=== PATIENT | female | born 2000 | race African-American/Black ===

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

== ENCOUNTER 2022-01-22 20:51 | Emergency (ER) | payer OTHER ==
[~2022-01-22] VITALS: Ht 160 cm; Wt 52.3 kg
[2022-01-22 20:54] VITALS: BP 104/69
== END 2022-01-23 | disposition home or self-care (01) ==
LOC: EMS 20:54
DX: S60.222A Contusion of left hand, initial encounter (principal); W22.01XA Walked into wall, initial encounter; Y93.89 Activity, other specified; Y92.89 Other specified places as the place of occurrence of the external cause; Y99.8 Other external cause status
CPT/HCPCS: 99284; 73110-TC; 73130-TC; Z7502

== ENCOUNTER 2022-02-02 09:28 | Emergency (ER) | payer OTHER ==
[~2022-02-02] VITALS: Ht 157.5 cm; Wt 50.0 kg
[2022-02-02 10:04] LABS: BASOPHILS % (AUTO) 0.3 % (0.0-2.0); EOSINOPHILS % (AUTO) 0 % (1.0-6.0); HEMATOCRIT 40.9 % (36-46); HEMOGLOBIN 13.2 g/dL (12.0-16.0); LYMPHOCYTES # (AUTO) 0.7 K/uL (1.0-4.8); LYMPHOCYTES % (AUTO) 6.9 % (22.0-44.0); MEAN CORPUSCULAR HEMOGLOBIN 26.3 pg (26.0-34.0); MEAN CORPUSCULAR HGB CONC 32.2 G/dL (31.0-37.0); MEAN CORPUSCULAR VOLUME 82 fL (80-100); MONOCYTES # (AUTO) 0.3 K/uL (0.1-1.0); MONOCYTES % (AUTO) 3.2 % (2.0-9.0); NEUTROPHILS # (AUTO) 8.9 K/uL (1.8-7.7); NEUTROPHILS % (AUTO) 89.6 % (40.0-70.0); PLATELET COUNT (AUTO) 335 K/uL (150-450); RED CELL DISTRIBUTION WIDTH 17.1 % (11.5-14.5)
[2022-02-02 10:18] LABS: ANION GAP 12 mmol/L (8-16); CALCIUM, TOTAL 9.6 mg/dL (8.8-10.5); CARBON DIOXIDE 25 mmol/L (22-29); CHLORIDE 102 mmol/L (98-107); CREATININE 0.58 mg/dL (0.60-1.30); GLUCOSE,RANDOM 134 mg/dL (70-110); POTASSIUM 3.8 mmol/L (3.5-5.1); SODIUM SERUM 139 mmol/L (136-145); UREA NITROGEN, BLOOD 8 mg/dL (7-18)
[2022-02-02 10:21] LABS: GLOMERULAR FILTR. RATE CALC > 60 mL/min (>60)
[2022-02-02 10:30] LABS: ALANINE AMINOTRANSFERASE 14 U/L (12-78); ALBUMIN 4.5 g/dL (3.4-5.0); ALKALINE PHOSPHATASE 72 U/L (46-116); ASPARTATE AMINOTRANSFERASE 14 U/L (15-37); BILIRUBIN,TOTAL 0.5 mg/dL (0.1-1.0); HCG,QUANTITATIVE < 1 mIU/mL (0-6); LIPASE 87 U/L (73-393); PHOSPHORUS 3.8 mg/dL (2.5-4.9); TOTAL PROTEIN, SERUM 8.9 g/dL (6.4-8.2)
[2022-02-02] MEDS ORDERED: SODIUM CHLORIDE 0.9% 100 ML ONE (10:39)
[2022-02-02] MEDS ORDERED: IOHEXOL 350 MG/ML 100 ML VIAL ONE ×2 (10:39→12:37)
[2022-02-02] MEDS ORDERED: FAMOTIDINE 10 MG/ML 2 ML VIAL IVP ONE (10:45)
[2022-02-02] MEDS ORDERED: KETOROLAC TROMETHAMINE 30 MG/ML VIAL IVP ONE (10:45)
[2022-02-02] MEDS ORDERED: MAG HYDROX/AL HYDROX/SIMETH 30 ML SUSP UDCUP PO ONE (10:45)
[2022-02-02] MEDS ORDERED: ONDANSETRON HCL 4 MG/2 ML VIAL IVP ONE (10:45)
[2022-02-02] MEDS ORDERED: SODIUM CHLORIDE 0.9% 1,000 ML IV ONE (10:45)
[2022-02-02] MEDS ORDERED: METOCLOPRAMIDE HCL 5 MG/ML 2 ML VIAL IVP ONE (12:30)
[2022-02-02] MEDS ORDERED: DiphenhydrAMINE HCL 50 MG/ML VIAL IVP ONE (12:30)
[2022-02-02 12:40] LABS: COVID AG,FIA SOURCE NASOPHARYNGEAL
[2022-02-02 12:49] LABS: APPEARANCE,URINE CLEAR (CLEAR); BILIRUBIN,URINE NEGATIVE (NEGATIVE); GLUCOSE, URINE (UA) NEGATIVE (NEGATIVE); KETONES,URINE 40-60 mg/dL (NEGATIVE); LEUKOCYTE ESTERASE ,URINE NEGATIVE (NEGATIVE); NITRATE,URINE NEGATIVE (NEGATIVE); OCCULT BLOOD,URINE MODERATE (NEGATIVE); PH,URINE 8.5 (5.0-8.0); PROTEIN,URINE 100-200,SEE CONFIRM mg/dL (NEGATIVE); UROBILINOGEN,URINE <=1.0 mg/dL (<=1.0)
[2022-02-02 13:03] LABS: SPECIFIC GRAVITIY, URINE > 1.050 (1.003-1.030)
[2022-02-02 13:08] LABS: INFLUENZA TYPE A NEGATIVE FOR TYPE A (NEGATIVE); INFLUENZA TYPE B NEGATIVE FOR TYPE B (NEGATIVE)
[2022-02-02 13:13] LABS: SULFOSALICYLIC ACID,URINE Negative (Negative)
[2022-02-02 13:16] LABS: BACTERIA,URINE None Seen /HPF (None Seen); RBC,URINE 0-2 /HPF (0-2); WBC,URINE None Seen /HPF (0-5)
[2022-02-02 13:40] VITALS: BP 119/64
[2022-02-02] MEDS ORDERED: ONDA-104 PO (13:48)
== END 2022-02-02 14:10 | disposition home or self-care (01) ==
LOC: EMS 09:40
DX: K52.9 Noninfective gastroenteritis and colitis, unspecified (principal); Z20.822 Contact with and (suspected) exposure to COVID-19
CPT/HCPCS: 99285; 74177; 96374; 96375; 76700; 96361; 87426; 80053; 81001; 81002; 82962; 83690; 83735; 84100; 84702; 85025; 87804; 36415; J1200; J3490; J1885; J2765; J2405; Q9967; J7030; J7050

== ENCOUNTER 2022-12-21 19:16 | Emergency (ER) | payer MEDICAID, OTHER ==
[~2022-12-21] VITALS: Ht 157.5 cm; Wt 49.0 kg
[~2022-12-21 19:16] MED LIST changes: -NOCURR; +ONDA-104 PO
[2022-12-21 19:33] VITALS: TEMP 98.6
[2022-12-21 20:40] LABS: BASOPHILS % (AUTO) 0.4 % (0.0-2.0); EOSINOPHILS % (AUTO) 0.3 % (1.0-6.0); HEMATOCRIT 41.2 % (36-46); HEMOGLOBIN 13.5 g/dL (12.0-16.0); LYMPHOCYTES # (AUTO) 1.3 K/uL (1.0-4.8); LYMPHOCYTES % (AUTO) 12.3 % (22.0-44.0); MEAN CORPUSCULAR HEMOGLOBIN 26.8 pg (26.0-34.0); MEAN CORPUSCULAR HGB CONC 32.9 G/dL (31.0-37.0); MEAN CORPUSCULAR VOLUME 82 fL (80-100); MONOCYTES # (AUTO) 0.9 K/uL (0.1-1.0); NEUTROPHILS # (AUTO) 8.6 K/uL (1.8-7.7); PLATELET COUNT (AUTO) 271 K/uL (150-450); RED BLOOD CELL COUNT(AUTO) 5.05 MIL/uL (4.00-5.20)
[2022-12-21 20:56] LABS: ALANINE AMINOTRANSFERASE 12 U/L (12-78); ALBUMIN 4.5 g/dL (3.4-5.0); ALKALINE PHOSPHATASE 77 U/L (46-116); ANION GAP 13 mmol/L (8-16); ASPARTATE AMINOTRANSFERASE 14 U/L (15-37); BILIRUBIN,TOTAL 0.7 mg/dL (0.1-1.0); CALCIUM, TOTAL 9.5 mg/dL (8.8-10.5); CARBON DIOXIDE 26 mmol/L (22-29); CHLORIDE 97 mmol/L (98-107); GLOMERULAR FILTR. RATE CALC > 60 mL/min (>60); GLUCOSE,RANDOM 105 mg/dL (70-110); SODIUM SERUM 137 mmol/L (136-145); TOTAL PROTEIN, SERUM 8.6 g/dL (6.4-8.2)
[2022-12-21 20:58] LABS: LIPASE 27 U/L (16-77)
[2022-12-21] MEDS ORDERED: SODIUM CHLORIDE 0.9% 1,000 ML IV ONE (21:15)
[2022-12-21] MEDS ORDERED: METOCLOPRAMIDE HCL 5 MG/ML 2 ML VIAL IVP ONE (21:15)
[2022-12-21] MEDS ORDERED: ONDANSETRON HCL 4 MG/2 ML VIAL IVP ONE (21:15)
[2022-12-21 21:50] LABS: AMPHET/METH SCREEN,URINE NEGATIVE (NEGATIVE); BARBITURATE SCREEN, URINE NEGATIVE (NEGATIVE); BENZODIAZEPINES SCREEN,URINE NEGATIVE (NEGATIVE); CANNABINOID SCREEN,URINE POSITIVE (NEGATIVE); COCAINE SCREEN,URINE NEGATIVE (NEGATIVE); METHADONE SCREEN, URINE NEGATIVE (NEGATIVE); OPIATE SCREEN,URINE NEGATIVE (NEGATIVE); PHENCYCLIDINE SCREEN,URINE NEGATIVE (NEGATIVE)
[2022-12-21] MEDS ORDERED: PROMETHAZINE HCL 25 MG RECTAL SUPPOSITORY PR ONE (22:00)
[2022-12-21] MEDS ORDERED: METO5TAB95 PO (22:21)
[2022-12-21] MEDS ORDERED: ONDA-104 PO (22:21)
[2022-12-21] MEDS ORDERED: PROM25SU10 PR (22:21)
[2022-12-21 22:35] VITALS: BP 115/63; PULSE 73; RESP 15
== END 2022-12-21 22:39 | disposition home or self-care (01) ==
LOC: EMS 19:16
DX: R11.10 Vomiting, unspecified (principal); F12.10 Cannabis abuse, uncomplicated; E87.6 Hypokalemia
CPT/HCPCS: 99284; 96374; 96361; 96375; 80053; 83690; 84703; 85025; 36415; 80307; J2765; J2405; J7030; G0480

== ENCOUNTER 2022-12-22 15:07 | Inpatient (IN) | payer MEDICAID ==
[~2022-12-22] VITALS: Ht 157.5 cm; Wt 52.3 kg
[~2022-12-22 15:07] MED LIST changes: +METO5TAB95 PO; +PROM25SU10 PR
[2022-12-22 15:09] VITALS: TEMP 98.3
[2022-12-22] MEDS ORDERED: DiphenhydrAMINE HCL 50 MG/ML VIAL IVP ONE (15:45)
[2022-12-22] MEDS ORDERED: ONDANSETRON HCL 4 MG/2 ML VIAL IVP ONE (15:45)
[2022-12-22] MEDS ORDERED: LORazepam 2 MG/ML VIAL IVP ONE (15:45)
[2022-12-22] MEDS ORDERED: SODIUM CHLORIDE 0.9% 1,000 ML IV ONE ×4 (15:45→17:45)
[2022-12-22] MEDS ORDERED: HALOPERIDOL LACTATE 5 MG/ML VIAL IM ONE (15:45)
[2022-12-22 15:51] LABS: BASOPHILS % (AUTO) 0.4 % (0.0-2.0); EOSINOPHILS % (AUTO) 0 % (1.0-6.0); HEMATOCRIT 38.4 % (36-46); HEMOGLOBIN 12.4 g/dL (12.0-16.0); LYMPHOCYTES # (AUTO) 1.7 K/uL (1.0-4.8); LYMPHOCYTES % (AUTO) 20.2 % (22.0-44.0); MEAN CORPUSCULAR HEMOGLOBIN 26.5 pg (26.0-34.0); MEAN CORPUSCULAR HGB CONC 32.3 G/dL (31.0-37.0); MEAN CORPUSCULAR VOLUME 82 fL (80-100); MONOCYTES # (AUTO) 0.5 K/uL (0.1-1.0); MONOCYTES % (AUTO) 5.8 % (2.0-9.0); NEUTROPHILS # (AUTO) 6.2 K/uL (1.8-7.7); NEUTROPHILS % (AUTO) 73.6 % (40.0-70.0); PLATELET COUNT (AUTO) 254 K/uL (150-450); RED BLOOD CELL COUNT(AUTO) 4.69 MIL/uL (4.00-5.20); RED CELL DISTRIBUTION WIDTH 17.3 % (11.5-14.5)
[2022-12-22 16:06] LABS: ALBUMIN 4.1 g/dL (3.4-5.0); ALKALINE PHOSPHATASE 69 U/L (46-116); ANION GAP 6 mmol/L (8-16); ASPARTATE AMINOTRANSFERASE 14 U/L (15-37); BILIRUBIN,TOTAL 0.7 mg/dL (0.1-1.0); CALCIUM, TOTAL 9.3 mg/dL (8.8-10.5); CARBON DIOXIDE 27 mmol/L (22-29); CHLORIDE 98 mmol/L (98-107); CREATININE 0.66 mg/dL (0.60-1.30); GLOMERULAR FILTR. RATE CALC > 60 mL/min (>60); GLUCOSE,RANDOM 105 mg/dL (70-110); LIPASE 32 U/L (16-77); SODIUM SERUM 131 mmol/L (136-145); TOTAL PROTEIN, SERUM 7.8 g/dL (6.4-8.2)
[2022-12-22 16:20] LABS: POTASSIUM 2.6 mmol/L (3.5-5.1)
[2022-12-22] MEDS ORDERED: POTASSIUM CHLORIDE 40 MEQ in SODIUM CHLORIDE 0.9% 1,000 ML IV ONE (16:30)
[2022-12-22 16:35] LABS: ALANINE AMINOTRANSFERASE 11 U/L (12-78)
[2022-12-22] MEDS ORDERED: MAGNESIUM HYDROXIDE SUSPENSION 30 ML UDCUP PO PRN (17:45)
[2022-12-22] MEDS ORDERED: ONDANSETRON HCL 4 MG/2 ML VIAL IVP PRN (17:45)
[2022-12-22] MEDS ORDERED: PANTOPRAZOLE SODIUM 40 MG/VIAL IVP SCH (17:45)
[2022-12-22] MEDS ORDERED: POTASSIUM CHLORIDE 20 MEQ ER TABLET PO PRN ×2 (17:45)
[2022-12-22] MEDS ORDERED: ACETAMINOPHEN 325 MG TABLET PO PRN (17:45)
[2022-12-22] MEDS ORDERED: ZOLPIDEM TARTRATE 5 MG TABLET PO PRN (17:45)
[2022-12-22] MEDS ORDERED: POTASSIUM CHL 10 MEQ/WATER 50 ML IV PRN ×2 (17:45)
[2022-12-22 17:49] VITALS: BP 112/63; PULSE 76; RESP 18
[2022-12-22 18:12] LABS: APPEARANCE,URINE CLEAR (CLEAR); BILIRUBIN,URINE NEGATIVE (NEGATIVE); GLUCOSE, URINE (UA) NEGATIVE (NEGATIVE); KETONES,URINE 80-100 mg/dL (NEGATIVE); LEUKOCYTE ESTERASE ,URINE NEGATIVE (NEGATIVE); NITRATE,URINE NEGATIVE (NEGATIVE); OCCULT BLOOD,URINE MODERATE (NEGATIVE); PH,URINE 7.5 (5.0-8.0); PROTEIN,URINE 30-70 mg/dL (NEGATIVE); SPECIFIC GRAVITIY, URINE 1.023 (1.003-1.030); UROBILINOGEN,URINE <=1.0 mg/dL (<=1.0)
[2022-12-22 18:40] LABS: BACTERIA,URINE None Seen /HPF (None Seen); WBC,URINE 0-2 /HPF (0-5)
== END 2022-12-22 20:03 | disposition left against medical advice (07) | DRG 426 ==
LOC: EMS 15:10 → 6S 17:55
PROVIDERS: ADMIT Internal Medicine; ATTEND Internal Medicine
DX: E87.1 Hypo-osmolality and hyponatremia (principal); E87.6 Hypokalemia; Z53.21 Procedure and treatment not carried out due to patient leaving prior to being seen by health care provider; R11.2 Nausea with vomiting, unspecified; F12.10 Cannabis abuse, uncomplicated; Z79.899 Other long term (current) drug therapy
CPT/HCPCS: 80053; 81001; 83690; 84703; 85025; 99285; C9113; J1200; J1630; J2060; J2405; J3480; J7030

== ENCOUNTER 2023-01-23 12:38 | Emergency (ER) | payer MEDICAID ==
[~2023-01-23] VITALS: Ht 165.1 cm; Wt 54.5 kg
[2023-01-23 12:58] VITALS: TEMP 98.4
[2023-01-23] MEDS ORDERED: SODIUM CHLORIDE 0.9% 2,000 ML IV ONE (13:45)
[2023-01-23] MEDS ORDERED: KETOROLAC TROMETHAMINE 30 MG/ML VIAL IVP ONE (13:45)
[2023-01-23] MEDS ORDERED: METOCLOPRAMIDE HCL 5 MG/ML 2 ML VIAL IVP ONE (13:45)
[2023-01-23] MEDS ORDERED: VALPROATE SODIUM 500 MG in DEXTROSE 5%-WATER 50 ML IV ONE (13:45)
[2023-01-23 13:46] LABS: COVID AG,FIA SOURCE NASAL SWAB
[2023-01-23 13:52] LABS: INFLUENZA TYPE A NEGATIVE FOR TYPE A (NEGATIVE); INFLUENZA TYPE B NEGATIVE FOR TYPE B (NEGATIVE)
[2023-01-23 13:55] LABS: SARS-COV2 (COVID) ANTIGEN,FIA Negative (Negative)
[2023-01-23 14:01] LABS: BASOPHILS % (AUTO) 0.3 % (0.0-2.0); EOSINOPHILS % (AUTO) 0.5 % (1.0-6.0); HEMATOCRIT 37.2 % (36-46); HEMOGLOBIN 12.2 g/dL (12.0-16.0); LYMPHOCYTES # (AUTO) 1.9 K/uL (1.0-4.8); LYMPHOCYTES % (AUTO) 23.4 % (22.0-44.0); MEAN CORPUSCULAR HEMOGLOBIN 27.4 pg (26.0-34.0); MEAN CORPUSCULAR HGB CONC 32.8 G/dL (31.0-37.0); MEAN CORPUSCULAR VOLUME 84 fL (80-100); MONOCYTES # (AUTO) 0.6 K/uL (0.1-1.0); MONOCYTES % (AUTO) 6.9 % (2.0-9.0); NEUTROPHILS # (AUTO) 5.5 K/uL (1.8-7.7); NEUTROPHILS % (AUTO) 68.9 % (40.0-70.0); PLATELET COUNT (AUTO) 306 K/uL (150-450); RED BLOOD CELL COUNT(AUTO) 4.45 MIL/uL (4.00-5.20); RED CELL DISTRIBUTION WIDTH 15.6 % (11.5-14.5)
[2023-01-23 14:15] LABS: ANION GAP 10 mmol/L (8-16); CALCIUM, TOTAL 9.4 mg/dL (8.8-10.5); CARBON DIOXIDE 24 mmol/L (22-29); CHLORIDE 101 mmol/L (98-107); CREATININE 0.52 mg/dL (0.60-1.30); GLOMERULAR FILTR. RATE CALC > 60 mL/min (>60); GLUCOSE,RANDOM 110 mg/dL (70-110); POTASSIUM 3.5 mmol/L (3.5-5.1); SODIUM SERUM 135 mmol/L (136-145); UREA NITROGEN, BLOOD 6 mg/dL (7-18)
[2023-01-23 14:27] LABS: ALANINE AMINOTRANSFERASE 10 U/L (12-78); ALBUMIN 3.7 g/dL (3.4-5.0); ALKALINE PHOSPHATASE 68 U/L (46-116); ASPARTATE AMINOTRANSFERASE 17 U/L (15-37); BILIRUBIN,TOTAL 0.3 mg/dL (0.1-1.0)
[2023-01-23] MEDS ORDERED: METO-296 PO (14:29)
[2023-01-23 14:40] VITALS: BP 119/64; PULSE 94; RESP 18
== END 2023-01-23 15:16 | disposition home or self-care (01) ==
LOC: EMS 12:40
DX: J06.9 Acute upper respiratory infection, unspecified (principal); R51.9 Headache, unspecified; R11.10 Vomiting, unspecified; F12.90 Cannabis use, unspecified, uncomplicated; Z20.822 Contact with and (suspected) exposure to COVID-19
CPT/HCPCS: 99284; 96365; 96375; 87426; 80053; 84703; 85025; 87804; 36415; J1885; J2765; J3490; J7060; J7030

== ENCOUNTER 2023-10-29 09:48 | Emergency (ER) | payer MEDICAID ==
[~2023-10-29] VITALS: Ht 157.5 cm; Wt 50.0 kg
[~2023-10-29 09:48] MED LIST changes: +METO-296 PO
[2023-10-29 09:52] VITALS: TEMP 97.9
[2023-10-29] MEDS: IBUPROFEN 600 MG TABLET PO ONE (11:21)
[2023-10-29 11:24] VITALS: BP 106/61; PULSE 82; RESP 16
[2023-10-29] MEDS ORDERED: IBUP-1492 PO (11:26)
== END 2023-10-29 11:35 | disposition home or self-care (01) ==
LOC: EMS 09:48
DX: M79.642 Pain in left hand (principal); F12.90 Cannabis use, unspecified, uncomplicated
CPT/HCPCS: 99283

== ENCOUNTER 2024-06-15 10:00 | Emergency (ER) | payer MEDICAID ==
[~2024-06-15] VITALS: Ht 154.9 cm; Wt 59.1 kg
[~2024-06-15 10:00] MED LIST changes: +IBUP-1492 PO
[2024-06-15 10:08] VITALS: BP 18/99; PULSE 76; RESP 18; TEMP 97.9; O2SAT 99
[2024-06-15 10:36] LABS: COVID AG,FIA SOURCE NASAL SWAB
[2024-06-15 11:07] LABS: SARS-COV2 (COVID) ANTIGEN,FIA Negative (Negative)
[2024-06-15 11:08] LABS: INFLUENZA TYPE A NEGATIVE FOR TYPE A (NEGATIVE); INFLUENZA TYPE B NEGATIVE FOR TYPE B (NEGATIVE)
[2024-06-15] MEDS ORDERED: ACET-2080 PO (11:56)
[2024-06-15] MEDS ORDERED: GUAIFDM PO (11:56)
[2024-06-15] MEDS ORDERED: IBUP-1554 PO (11:56)
[2024-06-15] MEDS ORDERED: IBUP-1506 PO (11:59)
== END 2024-06-15 12:08 | disposition home or self-care (01) ==
LOC: EMS 10:05
DX: S63.602A Unspecified sprain of left thumb, initial encounter (principal); J06.9 Acute upper respiratory infection, unspecified; Z20.822 Contact with and (suspected) exposure to COVID-19; W23.1XXA Caught, crushed, jammed, or pinched between stationary objects, initial encounter; Y93.89 Activity, other specified; Y92.89 Other specified places as the place of occurrence of the external cause; Y99.8 Other external cause status
CPT/HCPCS: 87804; 99284; 73140-TC; Z7502

== ENCOUNTER 2024-12-27 19:02 | Emergency (ER) | payer MEDICAID ==
[~2024-12-27] VITALS: Ht 154.9 cm; Wt 54.5 kg
[~2024-12-27 19:02] MED LIST changes: +ACET-2080 PO; +GUAIFDM PO; +IBUP-1506 PO
[2024-12-27 19:11] VITALS: BP 94/44; PULSE 79; RESP 18; TEMP 98.1; O2SAT 99
[2024-12-27] MEDS: KETOROLAC TROMETHAMINE 30 MG/ML VIAL IM ONE (22:43)
[2024-12-27] MEDS: BACITRACIN 28 GM OINTMENT TP ONE (22:48)
[2024-12-27] MEDS: PERTUSS(ACELL),DIPH,TET/PF 0.5 ML SYRINGE [ADULT] IM. ONE (22:48)
[2024-12-27] MEDS: IBUPROFEN 400 MG TABLET PO ONE (23:11)
== END 2024-12-27 23:15 | disposition home or self-care (01) ==
LOC: EMS 19:02
DX: T23.172A Burn of first degree of left wrist, initial encounter (principal); T31.0 Burns involving less than 10% of body surface; Z79.899 Other long term (current) drug therapy; X08.8XXA Exposure to other specified smoke, fire and flames, initial encounter; Y93.G3 Activity, cooking and baking; Y92.89 Other specified places as the place of occurrence of the external cause; Y99.8 Other external cause status
CPT/HCPCS: 16000; 90715; 99282; J1885